=== PATIENT | male | born 1975 | race Caucasian/White ===

== ENCOUNTER 2017-06-18 18:48 | Emergency (ER) | payer MEDICAID ==
[2017-06-18 19:56] LABS: BASOPHIL % 0.3 % (0-2); PLATELET COUNT 137 x10^3mcL (130-400); RED CELL DISTRIBUTION WIDTH 13.2 % (11.5-14.5)
[2017-06-18 20:04] LABS: CALCIUM 8.3 mg/dL (8.5-10.1); CHLORIDE SERUM 95 mmol/L (98-107); CREATININE SERUM 0.9 mg/dL (0.7-1.3); GFR1 > 60 mL/min; GLUCOSE SERUM 291 mg/dL (74-106); POTASSIUM SERUM 3.7 mmol/L (3.5-5.1); SODIUM SERUM 132 mmol/L (136-145)
[2017-06-18 21:58] LABS: BILIRUBIN DIRECT 0.58 mg/dL (0.0-0.2); BILIRUBIN TOTAL 0.79 mg/dL (0.20-1.00); TOTAL PROTEIN, SERUM 6.6 g/dL (6.4-8.2)
[2017-06-18 21:59] LABS: ALBUMIN 2.4 g/dL (3.4-5.0)
[2017-06-19 00:29] LABS: UA SPECIFIC GRAVITY <=1.005 (1.005-1.035); microscopic required? YES; urine erythrocyte TRACE (NEGATIVE)
[2017-06-19 00:43] LABS: AMPHETAMINE QUAL UR POSITIVE (NEG <=1000)
[2017-06-19 01:00] VITALS: BP 114/57
== END 2017-06-19 01:00 | disposition home or self-care (01) ==
LOC: ED 18:48
PROVIDERS: Emergency Medicine; Specialist
DX: E11.65 Type 2 diabetes mellitus with hyperglycemia (principal); K80.20 Calculus of gallbladder without cholecystitis without obstruction; M19.90 Unspecified osteoarthritis, unspecified site
CPT/HCPCS: 72072; 82962; J1815; J1885; J2405; J3010; J3490; J7030; Q0092